=== PATIENT | female | born 1955 | race Caucasian/White ===

== ENCOUNTER 2017-11-21 07:46 | Outpatient (CLI) | payer OTHER | END 2017-11-21 07:47 | disposition critical access hospital (66) | LOC: EMS 07:46 | PROVIDERS: ATTEND Surgery | DX: R06.00 Dyspnea, unspecified (principal); L29.9 Pruritus, unspecified; X58.XXXA Exposure to other specified factors, initial encounter | CPT/HCPCS: A0425; A0427 ==

== ENCOUNTER 2017-11-21 08:16 | Emergency (ER) | payer OTHER ==
[2017-11-21] MEDS ORDERED: SODIUM CHLORIDE 0.9% 1,000 ML IV ONE (08:27)
[2017-11-21] MEDS ORDERED: DEXAMETHASONE 10 MG/ML VIAL IVP STA (08:27)
[2017-11-21] MEDS ORDERED: CETIRIZINE 10 MG TABLET PO STA (08:27)
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
[2017-11-21 10:06] VITALS: BP 110/74
== END 2017-11-21 09:55 | disposition home or self-care (01) ==
LOC: ED 08:16
DX: T63.441A Toxic effect of venom of bees, accidental (unintentional), initial encounter (principal); J70.8 Respiratory conditions due to other specified external agents
CPT/HCPCS: 96361; 96374; 99283; A9270

== ENCOUNTER 2017-11-24 14:31 | Emergency (ER) | payer OTHER ==
[2017-11-24 14:49] VITALS: BP 121/73
--- NOTE | 2017-11-24 15:35 | ED Physician Documentation ---
PD HPI SKIN - Stated complaint Stated Complaint: POSS INFECTION BELLY BUTTOM - Chief complaint Chief Complaint: Wound - History obtained from History obtained from: Patient - History of Present Illness Timing - onset: How many weeks ago (1) Timing - duration: Weeks (1) Timing - details: Gradual onset, Still present Location: Abdomen Quality / character: Itchy, Discolored, Swelling Associated symptoms: No: Fever, Myalgias, Joint pain Contributing factors: Insect bite /sting Similar symptoms before: Diagnosis (infected insect bite) Recently seen: Emergency Dept - Additional information Additional information: 62-year-old female who has been seen in the emergency department recently with a bee sting reaction has had prior incident with infection following a sting and over the past week she has had some redness around her umbilicus with some slight itching to it and she has been treating this with which a little. The redness persists and she thinks there may be a bit of infection there. This is not the area where the patient was stung 2 days ago. Review of Systems Constitutional: denies: Fever Eyes: denies: Photophobia Nose: denies: Congestion Throat: denies: Sore throat Respiratory: denies: Cough GI: denies: Vomiting : denies: Dysuria, Frequency Skin: reports: Bite / sting, Other (red swollen area around the umbilicus) Musculoskeletal: denies: Neck pain, Back pain, Extremity pain PD PAST MEDICAL HISTORY - Past Medical History Cardiovascular: None - Past Surgical History Past Surgical History: No - Present Medications Home Medications: Ambulatory Orders Medication Instructions Recorded Confirmed Dexamethasone [Decadron] 4 mg PO DAILY #5 tablet 11/21/17 EPINEPHrine [Epinephrine] 0.3 mg IJ ONCE PRN #1 auto.injct 11/21/17 Mupirocin Calcium [Bactroban] 1 gm TP BID #15 cream..g. 11/24/17 - Allergies Allergies/Adverse Reactions: Allergies Allergy/AdvReac Type Severity Reaction Status Date / Time bee venom protein (honey bee) Allergy Respiratory Verified 11/24/17 14:49 - Social History Does the pt smoke?: No Smoking Status: Never smoker Does the pt have substance abuse?: No PD ED PE NORMAL - Vitals Vital signs reviewed: Yes (normal ) - General General: Alert and oriented X 3, No acute distress, Well developed/nourished - HEENT HEENT: Atraumatic - Respiratory Respiratory: No respiratory distress - Abdomen Abdomen: Soft, Non tender, Other (There is mild jose-umbilical swelling and erythema with superficial tenderness and no drainage .) - Derm Derm: Normal color, Warm and dry, No rash - Neuro Neuro: No motor deficit, No sensory deficit Eye Opening: Spontaneous Motor: Obeys Commands Verbal: Oriented GCS Score: 15 - Psych Psych: Normal mood, Normal affect Results - Vitals Vitals: Vital Signs - 24 hr 11/24/17 14:46 Temperature 36.6 C Heart Rate 85 Respiratory 18 Rate Blood Pressure 121/73 O2 Saturation 98 Oxygen O2 Source Room air PD MEDICAL DECISION MAKING - ED course Complexity details: considered differential, d/w patient ED course: 62-year-old female with what appears to be a superficial infection of the periumbilical area. This looks like it could easily be treated with Bactroban and she is prescribed this medication. - Sepsis Event Vital Signs: Vital Signs - 24 hr 11/24/17 14:46 Temperature 36.6 C Heart Rate 85 Respiratory 18 Rate Blood Pressure 121/73 O2 Saturation 98 Oxygen O2 Source Room air Departure - Departure Disposition: 01 Home, Self Care Clinical Impression: Cellulitis of periumbilical region Condition: Stable Instructions: ED Infec Skin Cellulitis Follow-Up: Your, doctor [Other] Prescriptions: Mupirocin Calcium [Bactroban] 1 gm TP BID #15 cream..g.
== END 2017-11-24 15:47 | disposition home or self-care (01) ==
LOC: ED 14:31
DX: L03.316 Cellulitis of umbilicus (principal)
CPT/HCPCS: 99281; 99283

== ENCOUNTER 2019-10-28 10:24 | Outpatient (CLI) | payer MEDICARE, OTHER | END 2019-10-28 10:25 | disposition home or self-care (01) | LOC: COV 10:24 | PROVIDERS: ATTEND Family Medicine | DX: Z11.59 Encounter for screening for other viral diseases (principal) ==

== ENCOUNTER 2023-05-18 14:24 | Emergency (ER) | payer MEDICARE, OTHER ==
[2023-05-18 14:32] VITALS: BP 140/77
--- NOTE | 2023-05-18 15:04 | ED Physician Documentation ---
PD HPI UPPER EXT INJURY - Stated complaint Stated Complaint: LT WRIST SPIDER BITE - Chief complaint Chief Complaint: Wound - History obtained from History obtained from: Patient - Additonal information Additional information: Patient is a 67-year-old female with no significant past medical history Presenting for evaluation of redness and swelling to the left wrist. Patient states she was working outside and reached into a wood pile and felt something bite or sting her. She is unsure what it was but is concerned it could have been a spider. This happened around 1230 today. Just since then she has developed some redness and swelling to the area. No fever. No rash anywhere else. No difficulty breathing. No pain with range of motion. She is not diabetic. Her tetanus is up-to-date. Review of Systems Constitutional: denies: Fever Cardiac: denies: Chest pain / pressure Respiratory: denies: Dyspnea Skin: reports: Rash PD PAST MEDICAL HISTORY - Past Medical History Past Medical History: No Cardiovascular: None - Past Surgical History Past Surgical History: No - Present Medications Home Medications: Ambulatory Orders Medication Instructions Recorded Confirmed No Known Home Medications 05/18/23 05/18/23 - Allergies Allergies/Adverse Reactions: Allergies Allergy/AdvReac Type Severity Reaction Status Date / Time bee venom protein (honey bee) Allergy Respiratory Verified 05/18/23 14:26 - Social History Does the pt smoke?: No Smoking Status: Never smoker Does the pt drink ETOH?: No Does the pt have substance abuse?: No - Immunizations Immunizations are current?: Yes PD ED PE NORMAL - General General: Alert and oriented X 3, No acute distress, Well developed/nourished - HEENT HEENT: Atraumatic - Neck Neck: Supple, no meningeal sign - Cardiac Cardiac: Strong equal pulses - Respiratory Respiratory: No respiratory distress - Extremities Extremities: Other (Redness and swelling to Left wrist with normal range of motion of left wrist and all directions, no bony tenderness, no warmth, erythema is blanching and appears more allergic in nature than cellulitic. No abnormal drainage. No necrotic lesions.No signs of lymphangitis) Results - Vitals Vitals: Vital Signs - 24 hr 05/18/23 14:26 Temperature 36.8 C Heart Rate 71 Respiratory 16 Rate Blood Pressure 140/77 H O2 Saturation 96 Oxygen O2 Source Room air PD Medical Decision Making - ED course ED course: Patient is a 67-year-old female presenting for evaluation of bite or sting to the left wrist and was concerned that it was a spider bite. She appears to have a localized reaction. No signs of infection at this time. Neurovascularly intact. No signs of open wound. No signs of necrosis. Discussed continued supportive care with trial of antihistamines, ice and elevation to help with the swelling. Patient counseled on concerning symptoms to return for. Departure - Departure Disposition: 01 Home, Self Care Clinical Impression: Bites and stings, insect Condition: Stable Instructions: ED Bite Spider Non Poisonous Comments: At this time it is unclear as to what you may have been stung or bit by. You are having a localized reaction on your wrist. Please continue with Benadryl as needed for hives and itching. You can also consider taking Zyrtec daily for the next few days which is a nonsedating histamine sabina. Bacitracin may be helpful over the site where you were bit or stung. Continue with ice and elevat ion to help with the swelling. Return to the ER with any worsening symptoms such as signs of infection, worsening swelling or pain. Forms: PCP List Discharge Date/Time: 05/18/23 15:08
[2023-05-18] MEDS: diphenhydrAMINE 25 MG CAPSULE PO STA (15:07)
[2023-05-18 15:16] VITALS: O2SAT 96
== END 2023-05-18 15:08 | disposition home or self-care (01) ==
LOC: ED 14:24
DX: S60.862A Insect bite (nonvenomous) of left wrist, initial encounter (principal); W57.XXXA Bitten or stung by nonvenomous insect and other nonvenomous arthropods, initial encounter
CPT/HCPCS: 99282; 99283; A9270